=== PATIENT | female | born 1955 | race Caucasian/White ===

== ENCOUNTER → 2017-01-01 | Outpatient (CLI) | payer OTHER ==
--- NOTE | 2017-01-01 13:41 | CT ---
EXAM DESCRIPTION: CT ABDOMEN AND PELVIS WITHOUT AND WITH CONTRAST CLINICAL HISTORY: HEMATURIA COMPARISON: None Available. TECHNIQUE: CT of the abdomen and pelvis are performed prior to and during IV bolus administration of ionic contrast. Oral contrast media is not administered. This exam was performed according to our departmental dose-optimization program, which includes automated exposure control, adjustment of the mA and/or kV according to patient size and/or use of iterative reconstruction technique. FINDINGS: Noncontrast imaging demonstrates grossly normal renal outlines without evidence of hydronephrosis or intrarenal calculi. A small fat-containing umbilical hernia is noted. The lung bases are clear without infiltrate or mass or effusion. The uterus is anteverted to the left of midline within the pelvis. The liver is normal in size and shape without cystic or solid mass and the gallbladder is normally distended without ductal dilation. A normal spleen with small accessory spleen annual is noted. The unenhanced pancreas is normal in appearance. No adrenal masses are seen. Cortical enhancement of the kidneys without solid or cystic mass is noted. No gross abnormality of the incompletely distended bladder is seen. No fluid collections within the abdomen and a or pelvis are noted. Large and small bowel caliber is normal. The anterior abdominal wall is unremarkable. Delayed imaging demonstrates a single normal collecting system and ureter on each side with layering contrast within the normal-appearing bladder. A mass or filling defect within the collecting system or bladder is not apparent significant degenerative disc narrowing at L4-5 and L5-S1 is apparent. No bony destructive changes are seen. IMPRESSION: 1. Normal appearance of the kidneys collecting systems and bladder without evidence of mass or abnormality to explain the patient's hematuria. 2. Degenerative changes in the lower lumbar spine with disc space narrowing at L4-5 and L5-S1 and small fat-containing umbilical hernia. 3. The abdomen and pelvic CT is otherwise essentially normal. Electronically signed by: Janusz Dietrich MD 01/01/2017 1:40 PM CDT
== END | disposition home or self-care (01) ==
LOC: CT 08:49
PROVIDERS: ATTEND Family Medicine
DX: R31.9 Hematuria, unspecified (principal)

== ENCOUNTER → 2017-01-22 | Outpatient (CLI) | payer BC | END | disposition home or self-care (01) | LOC: GMAM 14:50 | PROVIDERS: ATTEND Family Medicine | DX: R06.02 Shortness of breath (principal); R79.9 Abnormal finding of blood chemistry, unspecified ==

== ENCOUNTER → 2017-01-29 | Outpatient (CLI) | payer BC | END | disposition home or self-care (01) | LOC: GMA 14:22 | PROVIDERS: ATTEND Nurse Practitioner Acute Care | DX: R79.9 Abnormal finding of blood chemistry, unspecified (principal) ==

== ENCOUNTER → 2018-03-23 | Outpatient (CLI) | payer BC ==
--- NOTE | 2018-03-23 18:19 | MAM ---
EXAM DESCRIPTION: 3D Screening BILATERAL : Digital Mammography. CLINICAL HISTORY: 62 years Female SCREENING . No complaints or personal history of breast cancer. Remote family history of breast cancer. No childbirth. Postmenopausal 10 years. No HRT. Prior bilateral cyst aspirations.. Lifetime risk of developing breast cancer (Tyrer-Cuzick model)(%): 7.7%. COMPARISON: Baseline study at this facility. No prior reports available. TECHNIQUE: Bilateral CC and MLO projection full-field images, digital tomosynthesis mammographic technique Bilateral digital 2-D full-field MLO images. CAD not available for tomosynthesis or 2-D images. FINDINGS: The breast parenchymal density pattern is: Heterogeneously dense breast tissue, which may obscure small masses. No skin thickening or nipple retraction. Microcalcification in the left breast and axilla. Focal asymmetry in the retroareolar left breast in the posterior nipple line approximately 3 cm from the nipple. Focal asymmetry in the middle third of the right breast at the 11:00 position approximately 4 cm from the nipple. IMPRESSION: BI-RADS CATEGORY: 0 - INCOMPLETE- Need additional imaging evaluation. FOLLOW-UP: Recall for additional imaging: Bilateral targeted breast ultrasound regions of interest as described in the findings. Follow-up full-field diagnostic images may be obtained based upon the ultrasound findings.. Written communication concerning the IMPRESSION and Follow-up, will be mailed to the patient and referring health care provider. Electronically signed by: Mc Moreno MD 03/23/2018 6:18 PM [facility]
== END ==
LOC: MAMMO 10:30
PROVIDERS: ATTEND Family Medicine
DX: Z12.31 Encounter for screening mammogram for malignant neoplasm of breast (principal)

== ENCOUNTER → 2018-04-05 | Outpatient (CLI) | payer BC ==
--- NOTE | 2018-04-05 12:02 | US ---
EXAM DESCRIPTION: Breast,Bilateral: Ultrasound CLINICAL HISTORY: 62 yearsFemaleABN MAMMO COMPARISON: Digital screening tomosynthesis bilateral breasts 03/23/2018. TECHNIQUE: Transcutaneous scanning of the bilateral breasts utilizing aggarwal-scale and Doppler modes. Scanning performed by the beamer helper ; observed by Dr. Moreno. FINDINGS: Scanning of the retroareolar left breast. Mixture of fibroglandular and fatty echotexture is. No dominant solid mass or distinct cyst. No parenchymal edema or large calcifications. No overlying skin changes. Normal vascularity. Scanning of the upper outer quadrant of the right breast, with emphasis at 5 cm distance from the nipple. Mixture of fibroglandular and fatty echotexture is. No dominant solid mass or distinct cyst. No parenchymal edema or large calcifications. No overlying skin changes. Normal vascularity. IMPRESSION: Benign exam. BIRAD CATEGORY: 2 BENIGN FINDINGS. RECOMMENDATIONS: FOLLOW UP: Return to routine digital bilateral mammographic screening, one year interval from March 2018. The FINDINGS and the FOLLOW-UP plan were reviewed in person with the patient after the examination. Written communication explaining the IMPRESSION and FOLLOW-UP will be mailed to the patient and referring care provider. According to the [employer], yearly mammograms are recommended starting at age 40 and continuing as long as a woman is in good health. Any breast change noted on a breast self-exam should be reported promptly to the patient's healthcare provider. Breast MRI is recommended for women with an approximately 20-25% or greater lifetime risk of breast cancer, including women with a strong family history of breast or ovarian cancer and women who have been treated for Hodgkin's disease. A negative mammographic report should not delay tissue diagnosis in patients with significant clinical history or physical findings. Extremely dense breast tissue limits the sensitivity of digital mammography. Electronically signed by: Mc Moreno MD 04/05/2018 12:00 PM FREIGHT CONDUCTOR
== END ==
LOC: MAMMO 09:02
PROVIDERS: ATTEND Family Medicine
DX: R92.8 Other abnormal and inconclusive findings on diagnostic imaging of breast (principal)

== ENCOUNTER → 2019-04-08 | Outpatient (CLI) | payer BC | LOC: GMAM 10:24 | PROVIDERS: ATTEND Family Medicine | DX: R03.0 Elevated blood-pressure reading, without diagnosis of hypertension (principal) ==

== ENCOUNTER → 2019-05-12 | Outpatient (CLI) | payer BC ==
--- NOTE | 2019-05-13 08:11 | MRI ---
Study: MRI of the Right Knee. Indication: RT KNEE PAIN Technique: Multiplanar, multi sequence MRI of the right knee was obtained without intravenous contrast. Comparison: None. Findings: ACL, PCL, lateral collateral ligament complex intact. MCL is lax and bowed indicating sequela of a prior MCL sprain. No acute tear. Radial free edge tearing and 5 mm extrusion body medial meniscus. Severe medial compartment osteoarthritis with complete grade 4 chondral loss, significant cortical remodeling and subchondral marrow change. Degeneration posterior root attachment medial meniscus without transection. Free edge tearing body lateral meniscus. Patchy grade 3-4 chondrosis central aspect lateral compartment. Patellofemoral extensor mechanism intact. Patella normally located. Patchy areas of grade 3-4 chondrosis throughout the patellofemoral compartment and most pronounced laterally. Moderate size knee effusion. Moderate tricompartmental joint line osteophytes. No acute fracture. Impression: Degeneration posterior root attachment medial meniscus with extrusion and free edge tearing of the body. Radial free edge tearing body lateral meniscus. 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 Moderate size knee effusion. Additional findings as above. Electronically signed by: Wade Putnam MD 05/13/2019 8:09 AM GENERAL UTILITY MACHINE OPERATOR
--- NOTE | 2019-05-16 16:01 | MAM ---
EXAM DESCRIPTION: 3D Screening BILATERAL : Digital Mammography. CLINICAL HISTORY: 63 years Female screening . No complaints or personal history of breast cancer. Remote family history of breast cancer. Menarche age 11. Childbirth. Menopause age 50. No HRT. Bilateral cyst aspiration and biopsy benign. Lifetime risk of developing breast cancer (Tyrer-Cuzick model)(%): 12.8. COMPARISON: Bilateral screening digital breast tomosynthesis March 2018. Bilateral breast diagnostic ultrasound April 2018.. TECHNIQUE: Bilateral CC and MLO projection full-field images, digital tomosynthesis mammographic technique Bilateral digital 2-D full-field MLO images. CAD not available for tomosynthesis or 2-D images. FINDINGS: The breast parenchymal density pattern is: Heterogeneously dense breast tissue, which may obscure small masses. No skin thickening or nipple retraction. Bilateral solitary microcalcifications. Stable distribution of the dense fibroglandular tissues. No new focal, stellate mass or density, focal asymmetry , and no suspicious microcalcifications bilaterally. Stable mammograms compared to prior study. IMPRESSION: Benign exam. BIRAD CATEGORY: 2 BENIGN FINDINGS. RECOMMENDATIONS: FOLLOW UP: Routine digital bilateral mammographic screening, one year interval from May 2019. Written communication explaining the IMPRESSION and follow-up, will be mailed to the patient and referring health care provider. According to the [employer], yearly mammograms are recommended starting at age 40 and continuing as long as a woman is in good health. Any breast change noted on a breast self-exam should be reported promptly to the patient's healthcare provider. Breast MRI is recommended for women with an approximately 20-25% or greater lifetime risk of breast cancer, including women with a strong family history of breast or ovarian cancer and women who have been treated for Hodgkin's disease. A negative mammographic report should not delay tissue diagnosis in patients with significant clinical history or physical findings. Extremely dense breast tissue limits the sensitivity of digital mammography. Electronically signed by: Mc Moreno MD 05/16/2019 3:59 PM PIGMENT PROCESSOR
== END ==
LOC: MRI 13:02
PROVIDERS: ATTEND Family Medicine
DX: Z12.31 Encounter for screening mammogram for malignant neoplasm of breast (principal); M23.303 Other meniscus derangements, unspecified medial meniscus, right knee; M94.261 Chondromalacia, right knee; M25.461 Effusion, right knee

== ENCOUNTER → 2019-05-23 | Outpatient (CLI) | payer BC ==
--- NOTE | 2019-05-23 12:08 | RAD ---
EXAM DESCRIPTION: Knee,Right 1 or 2 Views CLINICAL HISTORY: 63 years Female, PAIN IN RIGHT KNEE COMPARISON: None. Findings: Two radiographs Evaluation limited by positioning and motion. Severe medial compartment narrowing with lateral tibial translation. Lateral patellar subluxation and tilt. Tricompartmental osteophytes osteopenia. No lateral radiograph provided to evaluate joint capsular distention. No definitive fracture is identified although evaluation is limited by positioning, motion and osteopenia. IMPRESSION: Limited evaluation without a discrete fracture identified. If there is persistent concern for an acute fracture MRI would be helpful for further evaluation. Right knee osteoarthritis. Electronically signed by: Robert Faye MD 05/23/2019 12:06 PM [facility]
== END ==
LOC: RAD 08:22
PROVIDERS: ATTEND Orthopaedic Surgery
DX: M17.11 Unilateral primary osteoarthritis, right knee (principal)

== ENCOUNTER → 2019-07-22 | Outpatient (CLI) | payer BC | LOC: LAB.O 11:49 | PROVIDERS: ATTEND Orthopaedic Surgery | DX: Z01.818 Encounter for other preprocedural examination (principal); Z79.899 Other long term (current) drug therapy ==

== ENCOUNTER → 2019-10-24 | Outpatient (CLI) | payer BC | LOC: LAB.O 11:05 | PROVIDERS: ATTEND Orthopaedic Surgery | DX: Z01.818 Encounter for other preprocedural examination (principal) ==